=== PATIENT | male | born 1985 | race Caucasian/White ===

== ENCOUNTER 2017-01-30 10:06 | Emergency (ER) | payer OTHER, SELFPAY ==
--- NOTE | 2017-01-30 11:10 | RAD ---
RADIOGRAPH LEFT SHOULDER 3 VIEWS: HISTORY: A 31-year-old male with acute left shoulder pain. FINDINGS: There is no evidence of fracture. No dislocation. IMPRESSION: Negative. POS: [id number]
[2017-01-30] MEDS ORDERED: Ketorolac Tromethamine 30 MG/ML VIAL ONE (11:12)
== END 2017-01-30 11:42 | disposition home or self-care (01) ==
LOC: ERS 10:06
DX: S40.012A Contusion of left shoulder, initial encounter (principal); F17.210 Nicotine dependence, cigarettes, uncomplicated; X58.XXXA Exposure to other specified factors, initial encounter
CPT/HCPCS: 96372; J1885